=== PATIENT | female | born 1975 | race African-American/Black ===

== ENCOUNTER → 2016-10-29 | Outpatient (CLI) | payer OTHER ==
--- NOTE | ~2016-10-29 | US24 ---
[facility] A Service of [facility] & [facility] RADIOLOGY TEXT RESULTS PATIENT: AMY CONTRERAS LOCATION: [facility] : 73 UNIT #: [id number] AGE: [address]: LOLIS RIOS APRN SEX: F ORDER DR: [id number] [facility] [address] [place], [place] [address] [id number] O MR#: [id number] Acc #: [id number] NAME: AMY CONTRERAS : 1975 SEX: F STUDY DATE/TIME: 10/29/2016 9:45 UNIT: [facility] ROOM: STUDY DESCRIPTION: US Breast Unilateral Attending Physician: Lolis Rios Aprn Ordering Physician: Lolis Rios Aprn MEDICAL IMAGING REPORT This report is preliminary unless electronic signature is present EXAM Targeted ultrasound of the right breast, 10/29/2016. FINDINGS Please see the diagnostic mammogram same date for this dictation. BIRADS: 3 Probably benign finding; short interval follow-up suggested. Dictated by... Nicko Bird M.D. THIS IS AN ELECTRONICALLY VERIFIED REPORT Nicko Bird M.D. at 10/31/2016 7:23 AM MOUNIKA/jessica TD: 10/29/2016 17:42 JOB #: [id number] MEDICAL IMAGING REPORT Page 1 of 1 COPY
--- NOTE | ~2016-10-29 | MY26 ---
[facility] A Service of [facility] & [facility] RADIOLOGY TEXT RESULTS PATIENT: AMY CONTRERAS LOCATION: [facility] : 73 UNIT #: [id number] AGE: [address]: LOLIS RIOS APRN SEX: F ORDER DR: [id number] [facility] [address] [place], [place] [address] [id number] O MR#: [id number] Acc #: [id number] NAME: AMY CONTRERAS : 1975 SEX: F STUDY DATE/TIME: 10/29/2016 9:09 UNIT: [facility] ROOM: STUDY DESCRIPTION: MY CHARU DIAGNOSTIC W/ CAD BILAT Attending Physician: Lolis Rios Aprn Ordering Physician: Lolis Rios Aprn MEDICAL IMAGING REPORT This report is preliminary unless electronic signature is present EXAM Bilateral digital diagnostic mammogram CAD and targeted right breast ultrasound, 10/29/2016. INDICATION 40-year-old female complaining of a breast nodule in the right for 2 months. No personal or family history of malignancy. No surgeries. TECHNIQUE CC, MLO, and true lateral views of the right breast were performed. Standard screening views were obtained on the left. COMPARISON 12/08/2015, 07/06/2012. Targeted ultrasound of the right breast was also performed in the area of palpable concern. FINDINGS MAMMOGRAPHIC FINDINGS: The area of palpable concern in the right breast was marked by the technologist. Adjacent to the marker, there appear to be 2 or perhaps 3 small rim-calcified oil cysts measuring up to 7 mm. No suspicious mammographic finding. There is some mildly heterogeneous breast tissue in the central upper outer hemisphere right breast, unchanged dating back to 2012 for technical factors. There is no new dominant nodule mass or suspicious clustered of microcalcifications. Targeted ultrasound of the area of patient palpable concern on the right was thereafter performed. ULTRASOUND Right breast: The patient was initially scanned independently by the technologist and then rescanned in my presence. Limited physical exam (with patient consent) was performed by me here in the department. In the area of palpable concern in the right breast, there are 3 cystic lesions present, two of them probably correspond to the benign oil cysts on the STS. [facility] A Service of [facility] & [facility] RADIOLOGY TEXT RESULTS PATIENT: AMY CONTRERAS LOCATION: [facility] #: [id number] : 73 UNIT #: [id number] AGE: [address]: LOLIS RIOS APRN SEX: F ORDER DR: patient's mammogram. These are at 1 o'clock about 7 cm from the nipple and the largest measures about 7 mm and the next largest measures about 4 mm. These correlate with a similar dimensions on the mammogram. There is a third probably benign cyst at 1 o'clock 6 cm from the nipple, measuring about 3 mm. There are low level echoes within it and this probably represents a tiny calcified oil cyst that may be faintly visible on the mammogram but that is not definitive. Imaging with ultrasound is otherwise negative. Suggest 6-month followup imaging with ultrasound of the probably benign complicated cyst measuring 3 mm to document expected stability. Findings and recommendations were discussed with the patient. She voiced understanding and agreement. IMPRESSION The area of palpable concern in the right breast corresponds to calcified oil cysts on mammography and ultrasound that are benign. The largest measures 7 and 4 mm respectively on both modalities. There is a third probably benign cyst at 1 o'clock measuring about 3 mm. It has a few internal echoes and debris within it on ultrasound, but likely represents a tiny calcified oil cyst, as well. Suggest 6-month followup imaging of this lesion to document expected stability. If it enlarges or becomes more suspicious on followup imaging, then ultrasound-guided biopsy would be recommended at that point. Findings and recommendations for 6-month followup ultrasound on the right were discussed with the patient. She voiced understanding and agreement. Patients over the age of 40 are entered into a reminder system with target due date for the next mammogram. A result letter will also be sent to the patient. BIRADS: 3 Probably benign finding; short interval follow-up suggested. Dictated by... Nicko Bird M.D. THIS IS AN ELECTRONICALLY VERIFIED REPORT Nicko Bird M.D. at 10/31/2016 7:23 AM MOUNIKA/jessica TD: 10/29/2016 17:24 JOB #: [id number] MEDICAL IMAGING REPORT Page 1 of 1 COPY
== END | disposition home or self-care (01) ==
LOC: CMAM 08:30
DX: N60.09 Solitary cyst of unspecified breast (principal)
CPT/HCPCS: 76641; G0204